=== PATIENT | female | born 1935 | race Caucasian/White ===

== ENCOUNTER 2017-06-25 09:08 | Day surgery (SDC) | payer OTHER ==
[~2017-06-25] VITALS: Ht 162.6 cm; Wt 60.3 kg
[~2017-06-25 09:08] MED LIST: CALCIUM 500 +1 EACH PO; CLARITIN10 MG PO; Caltrate 600/400 PO; FISH OIL 1,0001 EAC7 PO; FLONASE16 G1 BOTH NARES; Feosol PO; Fosamax PO; K-DUR20 MEQ PO; MAXZIDE 37.5 M1 EACH PO; Maxzide 25 PO; Metamucil Capsule PO; Motrin PO; NASONEX17 GM BOTH NARES; Ocuvite PO; Omega III EPA + DHA PO; Percocet 5/325,Endoc PO
[2017-06-25] MEDS ORDERED: PRESERVISIO1 CAPSULE PO (09:36)
[2017-06-25 09:38] VITALS: BP 137/71
[2017-06-25 12:10] VITALS: BP 168/85
[2017-06-25 12:56] VITALS: BP 145/66
== END 2017-06-25 13:06 | disposition home or self-care (01) ==
LOC: SDC 09:08
DX: H44.001 Unspecified purulent endophthalmitis, right eye (principal); H54.61 Unqualified visual loss, right eye, normal vision left eye; I10 Essential (primary) hypertension
CPT/HCPCS: J0690; J2250; J2405; J3010; J3300